=== PATIENT | male | born 1945 | race Caucasian/White ===

== ENCOUNTER 2017-02-17 07:43 | Inpatient (IN) | payer OTHER ==
[2017-01-28 13:26] VITALS: BMI 29.0
--- NOTE | 2017-01-28 13:52 | PAT Medication Instructions ---
Service Date Jan 28, 2017. Current Home Medication List Albuterol Hfa (Ventolin Hfa), 2 PUFFS INH PRN [Mucinex], 1 TAB PO PRN Medication Instructions For Your Scheduled Surgery - Hold the following medications the morning of surgery: [Mucinex], 1 TAB PO PRN - Take the following medications the morning of surgery: Albuterol Hfa (Ventolin Hfa), 2 PUFFS INH PRN (if needed, and bring it with you to the hospital) - Take the following medications as scheduled the night before surgery: Albuterol Hfa (Ventolin Hfa), 2 PUFFS INH PRN (if needed) [Mucinex], 1 TAB PO PRN (if needed) If you have any questions please call us at [phone] or [phone] or [phone]
[2017-01-28 13:59] LABS: BASO % 0.3 %; BASO ABS # 0.03 K/uL (0-0.2); EOS % 1.4 %; EOS ABS # 0.16 K/uL (0-0.5); HEMATOCRIT 42.3 % (42-52); HEMOGLOBIN 14.1 g/dL (14.0-18.0); IG# 0.03 K/uL (0.00-0.02); LYMPH % 30.3 %; LYMPH ABS # 3.52 K/uL (1.2-3.4); MEAN CELL VOLUME 97.7 fL (80-100); MEAN CORPUSCULAR HEMOGLOBIN 32.6 pg (25-34); MEAN CORPUSCULAR HGB CONC 33.3 g/dl (32-36); MEAN PLATELET VOLUME 10.3 fL (7.4-10.4); MONO % 8.2 %; MONO ABS # 0.95 K/uL (0.11-0.59); NEUT % 59.5 %; NEUT ABS # 6.93 K/uL (1.4-6.5); PLATELET COUNT 247 K/uL (130-400); RED CELL DISTRIBUTION WIDTH CV 13.4 % (11.5-14.5); RED CELL DISTRIBUTION WIDTH SD 48.1 fL (36.4-46.3); WHITE BLOOD COUNT 11.62 K/uL (4.8-10.8)
[2017-01-28 14:02] LABS: ALBUMIN 3.2 gm/dl (3.4-5.0); CALCIUM 8.6 mg/dl (8.5-10.1); CREATININE 1.17 mg/dl (0.60-1.40); POTASSIUM 4.5 mmol/L (3.5-5.1)
[2017-01-28 14:06] LABS: PTT PATIENT 26.8 SECONDS (21.0-31.0)
[2017-01-28 14:37] LABS: HEMOGLOBIN A1C 5.7 % (4.5-5.6)
--- NOTE | 2017-01-31 08:04 | DIAGNOSTIC IMAGING REPORT ---
CHEST 2 VIEWS ROUTINE CLINICAL HISTORY: 71 years-old Male presenting with preadmission chest x-ray. TECHNIQUE: PA and lateral views of the chest were obtained. COMPARISON: None. FINDINGS: Atherosclerosis of aortic arch. Chronic silhouette normal in size. Lungs and pleural spaces clear. Osseous structures normal. Cholecystectomy clips noted. IMPRESSION: 1. No acute cardiopulmonary disease. Electronically signed by: Jasmeet Sales M.D. 01/28/2017 4:15 PM Dictated Date/Time: 01/28/2017 4:14 PM
--- NOTE | 2017-02-16 18:34 | History and Physical ---
History & Physical Date Feb 16, 2017. Chief Complaint Left knee pain History of Present Illness The patient is a 71 year old male with complaints of male with complaints of left knee pain for several years. He has tried conservative therapy with no relief. He would like to proceed with a Left total knee arthroplasty. Past Medical/Surgical History PMHx: COPD Additional History Hepatic Disease: No Endocrine Disorder: No Kidney Disease: No Hypertension: No Heart Disease: No Bleeding Tendencies: No Infectious Diseases: No Allergies Coded Allergies: No Known Allergies (Unverified , 01/28/17) Home Medications Scheduled Albuterol Hfa (Ventolin Hfa), 2 PUFFS INH PRN [Mucinex], 1 TAB PO PRN Physical Examination Skin: warm/dry, no rash Eyes: normal inspection, EOMI ENT: normal ENT inspection Head: normocephalic, atraumatic Neck: supple, no adenopathy Respiratory/Chest: lungs clear, normal breath sounds Cardiovascular: regular rate, rhythm, no murmur Abdomen / GI: normal bowel sounds, non tender Extremities: normal inspection, + pertinent finding (Medial joint line tenderness, ligaments are intact. decreased strength and ROM) Neurologic/Psych: no motor/sensory deficits, alert, oriented x 3 Diagnosis Primary osteoarthritis of left knee Plan of Treatment Patient is scheduled for a Left total knee arthroplasty. He has failed conservative therapy and would like to proceed with scheduled surgery. Risks and benefits were discussed with the patient and he understands the risks and wishes to proceed. All questions were answered. He will be placed on ASA 81mg BID for DVT prophylaxis. He would like to go home with OPPT.
[~2017-02-17] VITALS: Ht 190.5 cm; Wt 108.0 kg
[2017-02-17] VITALS (8 sets, daily range): BP systolic 101–144; BP diastolic 43–69; PULSE 54–94; TEMP 36.4–36.7; O2SAT 94–97; Ht 190.5 cm; Wt 108.0 kg
[~2017-02-17 07:43] MED LIST: ACETAMINOPHEN 500 MG TAB PO SCH; BUPIVACAINE 0.25% 30 ML VIAL ONE; BUPIVACAINE 0.5 % 5 MG/1 ML PF 10ML VIAL ONE; CEFAZOLIN 2000MG IV PUSH 10 ML IV SCH; CeleBREX 200 MG CAP PO SCH; DEXAMETHASONE 4 MG TAB PO SCH; FAMOTIDINE 20 MG TAB PO SCH; GABAPENTIN 300 MG CAP PO SCH; LACTATED RINGER'S 1000ML 1,000 ML IV SCH; LACTATED RINGER'S 1000ML 500 ML IV SCH; LACTATED RINGER'S 1000ML IV SCH; METOCLOPRAMIDE HCL 10 MG TAB PO SCH; MUCINEX PO; OXYCODONE HCL 10 MG TABCR (OXYCONTIN) PO SCH; ROPIVACAINE 5MG/ML 30 ML 150 MG, BUPIVACAINE 0.5% MPF INJ 30 ML, EpINEphrine HCL INJ 0.... INFIL SCH; VNTHFA/IN INH
[2017-02-17] MEDS ORDERED: EpHEDrine SULFATE INJ 50 MG/ML AMP IV PRN (08:30)
[2017-02-17] MEDS ORDERED: ATROPINE SULFATE 0.1 MG/ML 5ML SYR IV PRN (08:30)
[2017-02-17] MEDS ORDERED: ONDANSETRON INJ 2 MG/ML 2 ML VIAL IV PRN ×2 (08:30→13:00)
[2017-02-17] MEDS ORDERED: FENTANYL CITRATE INJ 50 MCG/1 ML 2 ML VIAL IV PRN (08:30)
--- NOTE | 2017-02-17 09:40 | History & Physical Bridge Note ---
H&P Re-Evaluation Bridge Note: I have examined the patient, reviewed the History & Physical and in the interval since the performance of the History & Physical I have noted the following changes of clinical significance: No changes noted
[2017-02-17] MEDS ORDERED: ORTHO JOINT ANESTHETIC ONE (09:55)
[2017-02-17] MEDS ORDERED: BACITRACIN 50000 UNIT VIAL ONE (09:55)
[2017-02-17] MEDS ORDERED: POVIDONE-IODINE OP SOLN 30 ML BTL ONE (09:55)
[2017-02-17] MEDS ORDERED: FENTANYL CITRATE INJ 50 MCG/1 ML 2 ML VIAL ONE (09:58)
[2017-02-17] MEDS ORDERED: MIDAZOLAM HCL 1 MG/ML 2ML VIAL ONE (09:58)
[2017-02-17] MEDS: TRANEXAMIC ACID INJ 1,000 MG in SYRINGE 0 ML IV SCH ×2 (10:00→10:29)
[2017-02-17] MEDS ORDERED: PROPOFOL IV EMULSION 10 MG/ML 20 ML VIAL IV ONE (11:33)
[2017-02-17] MEDS ORDERED: EpHEDrine SULFATE 50MG/5ML SYR ONE (11:33)
--- NOTE | 2017-02-17 12:26 | [facility] Operative Report ---
Operative Report Operative Date Feb 17, 2017. Pre-Operative Diagnosis Primary Osteoarthritis Left Knee Post-Operative Diagnosis Primary Osteoarthritis Left Knee Procedure(s) Performed Left Total Knee Arthroplasty Surgeon Dr. Hameed Customer Engineering Specialist Surgeon(s) JOSAFAT Perea Estimated Blood Loss 20 ml Findings As above Specimens A. Left Knee Bone and Tissue Drains 2 Hemovac Anesthesia spinal Complication(s) None Disposition Recovery Room / PACU Indications The patient is a 71-year-old male long-standing osteoarthritis the left knee. He is [id number]. He has failed conservative measures including anti- inflammatories injection and rehabilitation. He wishes to proceed with a left total knee arthroplasty. Description of Procedure Risks benefits and alternatives of surgery including but not limited to infection, DVT, pain, stiffness, need for surgery, damage to blood vessels, damage to nerves or risks of anesthesia were discussed with the patient and they wished to proceed. The patient was identified and the laterality was confirmed and marked. They received a preoperative antibiotic as well as a spinal anesthetic and an abductor canal block. A well-padded tourniquet was applied and then the limb was prepped and draped in standard manner with ChloraPrep. The limb was exsanguinated and the tourniquet was inflated. I made a standard anterior incision. I sharply incised the skin then utilized Bovie electrocautery as well as the aqua mantis to achieve hemostasis. I made a medial parapatellar arthrotomy and mobilized the patella laterally. I then excised the anterior horns of the medial and lateral meniscus as well as the infrapatellar fat pad. I elevated a portion of the MCL off of the tibia. I then pinned into place a patient-matched distal femoral cutting guide and made my distal femoral resection. I then pinned into place the 5 in 1 femoral cutting guide. I made my anterior, posterior and chamfer cuts. I then excised the cruciates and the remaining portions of the menisci. I then pinned into place a patient- matched tibial cutting guide and made my tibial resection. I then pinned into place the tibial plate a utilizing alignment krystal to confirm rotation. I then cut for the post. Utilizing a lamina vice president residential solar sales and I then removed posterior osteophytes off the femur. I then placed a trial femur into position and cut for the trochlear component. I then sequentially trialed to size the polyethylene until there was good soft tissue balancing and range of motion. I then prepared the patella with a freehand cut utilizing sagittal saw. I sized and drilled for the patella. There was good tracking to the patella no lateral release was needed. All the trial components were removed. The deep tissues were anesthetized with an ortho mix solution. Then with Simplex HV with gentamicin cement, I cemented my definitive components. Definitive components, [employer] Journey 2: Femur 9 Tibia 8 Poly 9 Patella 41 oval A betadine soak was performed. A deep drain was placed. The arthrotomy was closed with interrupted #1 Vicryl suture subcutaneous tissue was closed with interrupted 2-0 Vicryl suture. The skin was closed with with qamar. A Silverlon was placed. Sterile dressings were applied. All needle and sponge counts were correct at the end of the procedure patient was transferred to the PACU in stable condition without apparent complication. The PA-C was necessary for assistance with procedure for assistance in positioning, prepping, draping, retraction and closure. I attest to the content of the Intraoperative Record and any orders documented therein. Any exceptions are noted below.
[2017-02-17] MEDS ORDERED: ALUMINUM/MAGNESIUM/SIMETH (MAALOX MAX) 30 ML UDC PO PRN (13:00)
[2017-02-17] MEDS ORDERED: MoRPHine SULFATE 2 MG/ML CARP IV PRN (13:00)
[2017-02-17] MEDS ORDERED: ALBUTEROL HFA 8 GM INHALER INH PRN (13:00)
[2017-02-17] MEDS ORDERED: ZOLPIDEM TARTRATE 5 MG TAB PO PRN (13:00)
[2017-02-17] MEDS ORDERED: BISACODYL 10 MG SUPP PR PRN (13:00)
[2017-02-17] MEDS ORDERED: METOCLOPRAMIDE HCL INJ 5 MG/ML 2 ML VIAL IV PRN (13:00)
[2017-02-17] MEDS ORDERED: MAGNESIUM HYDROXIDE SUSP 30 ML UDC PO PRN (13:00)
[2017-02-17] MEDS ORDERED: SOD PHOSPHATE/SOD BIPHOSPHATE ENEMA 132 ML BTL PR PRN (13:00)
--- NOTE | 2017-02-17 13:43 | DIAGNOSTIC IMAGING REPORT ---
TWO VIEWS LEFT KNEE CLINICAL HISTORY: Postoperative examination. FINDINGS: AP and crosstable lateral portable views of the left knee are obtained. A left knee arthroplasty is in near anatomic alignment. There has been undersurface remodeling of the patella. No acute fracture is seen. There are expected postoperative changes around the knee including skin clips, a surgical drain, soft tissue edema, and subcutaneous gas. There is atherosclerotic calcification of the popliteal artery. IMPRESSION: Expected postoperative changes status post left knee arthroplasty. No acute fracture is seen. Electronically signed by: Glen Carter M.D. 02/17/2017 1:41 PM Dictated Date/Time: 02/17/2017 1:41 PM
--- NOTE | 2017-02-17 15:06 | Anesthesiology Progress Note ---
Anesthesia Post Op Note Date & Time Feb 17, 2017 at 15:06 Vital Signs Pain Intensity: 0.0 Vital Signs Past 12 Hours Date Time Temp Pulse Resp B/P (MAP) Pulse Ox O2 Delivery O2 Flow Rate FiO2 02/17/17 14:59 36.7 60 16 112/66 (81) 96 Nasal Cannula 2.0 02/17/17 14:30 54 18 110/69 (83) 96 Nasal Cannula 2.0 02/17/17 14:00 95 Nasal Cannula 2.0 02/17/17 14:00 95 Nasal Cannula 2.0 02/17/17 14:00 36.4 68 16 113/63 (80) 95 Nasal Cannula 2.0 02/17/17 13:50 57 12 119/58 94 Nasal Cannula 2 02/17/17 13:40 36.4 61 13 115/61 95 Nasal Cannula 2 02/17/17 13:30 63 16 106/60 98 Nasal Cannula 2 02/17/17 13:20 56 12 114/60 97 Oxymask 10 02/17/17 13:10 53 16 116/56 96 Oxymask 10 02/17/17 13:00 36.7 63 16 102/56 97 Oxymask 10 02/17/17 08:31 36.6 94 20 144/65 94 Room Air Notes Mental Status: alert / awake / arousable, participated in evaluation Pt Amnestic to Procedure: Yes Nausea / Vomiting: adequately controlled Pain: adequately controlled Airway Patency, RR, SpO2: stable & adequate BP & HR: stable & adequate Hydration State: stable & adequate Neuraxial Anesthesia: was administered, sensory block is resolving Anesthetic Complications: no major complications apparent
[2017-02-17] MEDS ORDERED: GUAIFENESIN 600 MG TABCR PO PRN (15:15)
[2017-02-17] MEDS: D5W AND 1/2NSS + 20MEQ KCL 1,000 ML IV SCH (17:11)
[2017-02-17] MEDS: CEFAZOLIN IV 2,000 MG in SYRINGE 0 ML IV SCH (17:33)
[2017-02-17] MEDS: ASPIRIN 81 MG ECTAB PO SCH (20:38)
[2017-02-17] MEDS: DOCUSATE SODIUM 100 MG CAP PO SCH (20:38)
[2017-02-17] MEDS: SENNA 8.6 MG TAB PO SCH (20:38)
[2017-02-17] MEDS: CeleBREX 200 MG CAP PO SCH (20:38)
[2017-02-18] MEDS: D5W AND 1/2NSS + 20MEQ KCL 1,000 ML IV SCH ×2 (01:52→12:58)
[2017-02-18] MEDS: CEFAZOLIN IV 2,000 MG in SYRINGE 0 ML IV SCH (01:52)
[2017-02-18 03:09] VITALS: BP 101/57; PULSE 61; TEMP 36.7; O2SAT 96
[2017-02-18 06:23] LABS: HEMATOCRIT 35.4 % (42-52); MEAN CELL VOLUME 95.4 fL (80-100); MEAN CORPUSCULAR HEMOGLOBIN 32.3 pg (25-34); MEAN CORPUSCULAR HGB CONC 33.9 g/dl (32-36); MEAN PLATELET VOLUME 9.9 fL (7.4-10.4); PLATELET COUNT 222 K/uL (130-400); RED CELL DISTRIBUTION WIDTH CV 13.2 % (11.5-14.5); RED CELL DISTRIBUTION WIDTH SD 45.6 fL (36.4-46.3); WHITE BLOOD COUNT 22.24 K/uL (4.8-10.8)
[2017-02-18 06:54] LABS: CALCIUM 8.3 mg/dl (8.5-10.1); CREATININE 1.14 mg/dl (0.60-1.40); POTASSIUM 4.4 mmol/L (3.5-5.1)
--- NOTE | 2017-02-18 06:58 | Orthopedic Progress Note ---
Orthopedic Progress Note Date of Service Feb 18, 2017. Subjective Post OP Day: 1 Reports: feeling well, pain controlled w PO medications, Denies: complaints, chest pain, SOB, nausea / vomiting, light headedness, calf pain Objective calves soft nontender, N/V intact, capillary refill less than 2 sec., dressing C /D/I, A&O x3, toes mobile, hemovac drainage (465cc/130cc) Date Time Temp Pulse Resp B/P (MAP) Pulse Ox O2 Delivery O2 Flow Rate FiO2 02/18/17 03:09 36.7 61 18 101/57 (72) 96 Room Air 02/18/17 01:36 Room Air 02/17/17 22:47 36.6 58 16 106/52 (70) 96 Room Air 02/17/17 19:08 36.5 54 17 101/43 (62) 95 Room Air 02/17/17 16:56 36.6 57 17 124/66 (85) 95 Room Air 02/17/17 16:03 36.6 55 16 116/65 (82) 97 Room Air 02/17/17 15:40 Nasal Cannula 2.0 02/17/17 14:59 36.7 60 16 112/66 (81) 96 Nasal Cannula 2.0 02/17/17 14:30 54 18 110/69 (83) 96 Nasal Cannula 2.0 02/17/17 14:00 95 Nasal Cannula 2.0 02/17/17 14:00 95 Nasal Cannula 2.0 02/17/17 14:00 36.4 68 16 113/63 (80) 95 Nasal Cannula 2.0 02/17/17 13:50 57 12 119/58 94 Nasal Cannula 2 02/17/17 13:40 36.4 61 13 115/61 95 Nasal Cannula 2 02/17/17 13:30 63 16 106/60 98 Nasal Cannula 2 02/17/17 13:20 56 12 114/60 97 Oxymask 10 02/17/17 13:10 53 16 116/56 96 Oxymask 10 02/17/17 13:00 36.7 63 16 102/56 97 Oxymask 10 02/17/17 08:31 36.6 94 20 144/65 94 Room Air Laboratory Results 24 Hours: Test 02/18/17 06:04 Hematocrit 35.4 % Hemoglobin 12.0 g/dL Prothromb Time International Ratio 1.0 Prothrombin Time 10.3 SECONDS Assessment & Plan Assessment: POD#1 Left TKA Plan: DVT - ASA Medical Management POT/OT Discharge - due to too much drainage he will remain overnight
[2017-02-18 07:59] VITALS: BP 112/66; PULSE 63; TEMP 36.6; O2SAT 97
[2017-02-18 08:28] VITALS: O2SAT 97
[2017-02-18] MEDS: ASPIRIN 81 MG ECTAB PO SCH ×2 (08:41→20:34)
[2017-02-18] MEDS: CeleBREX 200 MG CAP PO SCH ×2 (08:41→20:34)
[2017-02-18] MEDS: DOCUSATE SODIUM 100 MG CAP PO SCH ×2 (08:41→20:34)
[2017-02-18] MEDS: MULTIVITAMIN TAB PO SCH (08:41)
[2017-02-18 11:53] VITALS: BP 130/72; PULSE 60; TEMP 36.6; O2SAT 97
[2017-02-18] MEDS: OXYCODONE HCL IR 5 MG TAB (IMMEDIATE RELEASE) PO PRN ×2 (15:09→20:35)
[2017-02-18 15:13] VITALS: BP 136/62; PULSE 63; TEMP 36.8; O2SAT 95
[2017-02-18] MEDS: SENNA 8.6 MG TAB PO SCH (20:34)
--- NOTE | 2017-02-18 20:34 | Discharge Instructions ---
Discharge Instructions Date of Service Feb 18, 2017. Admission Reason for Admission: Left Knee Osteoarthritis Discharge Discharge Diagnosis / Problem: left knee osteoarthritis Discharge Goals Goal(s): Decrease discomfort, Improve function, Increase independence Activity Recommendations Activity Limitations: as noted below Weightbearing Status: Left weightbearing (as tolerated) . Instructions / Follow-Up Instructions / Follow-Up ACTIVITY RECOMMENDATIONS: SELF CARE INSTRUCTIONS AFTER TOTAL KNEE REPLACEMENT A. You may need to continue a physical therapy program after discharge from the hospital. There are several options available to you. Your doctor will assist you in selecting the best one for you. 1. An out-patient facility 2 to 3 times a week for therapy or home therapy. 2. Continue working on all exercises taught to you in the hospital. Your goals should be to increase bending of your knee to 90 degrees and beyond and to fully straighten your knee. B. You may progress at your own pace from walking with a walker or crutches to a cane; then to no assistive devices. C. Make walking a part of your daily routine. Be up as much as comfortable with rest periods throughout the day. Rest with leg elevation is very important. Use the ice wrap frequently for the first 3-4 weeks. D. There are no restrictions on activities. You may ride in a car, shop, participate in swatch checker and all social activities. E. Wear the long elastic stockings (DONOVAN hose) 20 hours a day for 2 weeks after surgery. They can be removed several times a day for laundering and for a bath. F. You may shower, no tub baths until cleared by your doctor. SPECIAL CARE INSTRUCTIONS: VERY IMPORTANT TO READ AND REVIEW A. There are a few signs you need to watch for after you are home. Call [facility] if you notice any of the followin. Increased severe knee pain. Some pain is expected especially when you exercise. 2. Increased swelling in your leg or knee; pain or swelling of the calf muscle in either lower leg. 3. Any fluid drainage from the incision. 4. Shortness of breath or chest pain. B. Please call [facility] [place], [place] at if you have any concerns or questions about your operation or recovery. The doctor or his nurse will return your call promptly. C. You must take antibiotics before dental work, bladder, bowel or other surgery. Your doctor will provide you with a permanent care to carry describing this precaution. IMPORTANT: * REMEMBER TO TAKE ASPIRIN, 81 MG, TWICE DAILY FOR 4 WEEKS UNLESS OTHERWISE DIRECTED. THIS IS YOUR BLOOD THINNER. * HIGH RISK PATIENTS MAY BE PRESCRIBED A STRONGER BLOOD THINNER. THIS WILL BE PROVIDED AT DISCHARGE. * CALL IF INCREASED PAIN, REDNESS, DRAINAGE OR FEVER GREATER THAT 101. * WEAR DONOVAN HOSE 20 HOURS PER DAY FOR 2 WEEKS. * YOU MAY HAVE A LARGE BAND-AID LIKE DRESSING (SILVERON). THIS WILL REMAIN ON YOUR INCISION FOR 7 DAYS, THEN CAN BE REMOVED. IF INCISION IS LEAKING THROUGH DRESSING, CALL THE OFFICE . FOLLOW UP VISIT: If appointment is not already scheduled: Please call [facility] to make a follow-up appointment for 2 weeks after your surgery at . Current Hospital Diet Patient's current hospital diet: Regular Diet Discharge Diet Recommended Diet: Regular Diet Procedures Procedures Performed: Left Total Knee Arthroplasty Pending Studies Studies pending at discharge: no Laboratory Results Hemoglobin A1c Test 01/28/17 13:10 Range/Units Estimated Average Glucose 117 mg/dl Hemoglobin A1c 5.7 H 4.5-5.6 % Medical Emergencies . Who to Call and When: Medical Emergencies: If at any time you feel your situation is an emergency, please call [phone] immediately. . Non-Emergent Contact Non-Emergency issues call your: Primary Care Provider, Surgeon . "Provider Documentation" section prepared by Thierno Maldonado. . VTE Core Measure Inpt VTE Proph given/why not?: Other Anticoagulation (ASA 81mg po bid x 1 month ), T.E.DNeeta Moore, SCD's [place] Drug Monitoring Program Search Results: patient reviewed within database, no issues identified
[2017-02-18 23:25] VITALS: BP 94/51; PULSE 58; TEMP 37.1; O2SAT 94
[2017-02-19] MEDS: OXYCODONE HCL IR 5 MG TAB (IMMEDIATE RELEASE) PO PRN ×2 (05:36→09:42)
--- NOTE | 2017-02-19 06:01 | Orthopedic Progress Note ---
Orthopedic Progress Note Date of Service Feb 19, 2017. Subjective Post OP Day: 2 Reports: feeling well, pain controlled w PO medications, Denies: complaints, chest pain, SOB, nausea / vomiting, light headedness, calf pain Objective calves soft nontender, N/V intact, capillary refill less than 2 sec., A&O x3, toes mobile Date Time Temp Pulse Resp B/P (MAP) Pulse Ox O2 Delivery O2 Flow Rate FiO2 02/18/17 23:25 37.1 58 18 94/51 (65) 94 Room Air 02/18/17 23:15 Room Air 02/18/17 15:13 36.8 63 16 136/62 (86) 95 Room Air 02/18/17 15:05 Room Air 02/18/17 11:53 36.6 60 19 130/72 (91) 97 Room Air 02/18/17 08:28 97 Room Air 02/18/17 07:59 36.6 63 18 112/66 (81) 97 Room Air 02/18/17 07:50 Room Air Laboratory Results 24 Hours: Test 02/18/17 06:04 Hematocrit 35.4 % Hemoglobin 12.0 g/dL Prothromb Time International Ratio 1.0 Prothrombin Time 10.3 SECONDS Assessment & Plan Assessment: POD#2 Left TKA Plan: DVT - ASA Medical Management POT/OT will plan for d/c home later today after PT Discharge Planning Discharge Planning: home with oppt DVT Prophylaxis: TEDs, SCDs, ASA Therapy: Physical Therapy
[2017-02-19] MEDS ORDERED: ACET-1138 PO (06:13)
[2017-02-19] MEDS ORDERED: ONDA8TAB6 PO (06:13)
[2017-02-19] MEDS ORDERED: CLB200 PO (06:13)
[2017-02-19] MEDS ORDERED: RXC5 PO (06:13)
[2017-02-19] MEDS ORDERED: ASPEC81 PO (06:13)
[2017-02-19] MEDS ORDERED: CLC100 PO (06:13)
[2017-02-19 06:40] VITALS: BP 134/61; PULSE 57; TEMP 37; O2SAT 96
[2017-02-19] MEDS: ASPIRIN 81 MG ECTAB PO SCH (07:22)
[2017-02-19] MEDS: DOCUSATE SODIUM 100 MG CAP PO SCH (07:22)
[2017-02-19] MEDS: CeleBREX 200 MG CAP PO SCH (07:22)
[2017-02-19] MEDS: MULTIVITAMIN TAB PO SCH (07:22)
[2017-02-19 08:12] VITALS: BP 134/61; PULSE 57; TEMP 37; O2SAT 96
== END 2017-02-19 10:00 | disposition home or self-care (01) | DRG 470 ==
LOC: C.ACU 07:43 → C.3E 09:37 → ENRESERV 13:33
PROVIDERS: ADMIT Orthopaedic Surgery; ATTEND Orthopaedic Surgery
PROC: 0SRD0J9 Replacement of Left Knee Joint with Synthetic Substitute, Cemented, Open Approach (ICD-10-PCS; principal; 2017-02-17 10:45)
DX: M17.12 Unilateral primary osteoarthritis, left knee (principal); J44.9 Chronic obstructive pulmonary disease, unspecified; F17.200 Nicotine dependence, unspecified, uncomplicated; Z85.828 Personal history of other malignant neoplasm of skin